=== PATIENT | male | born 1960 | race Caucasian/White ===

== ENCOUNTER 2023-04-12 09:07 | Emergency (ER) | payer MEDICAID ==
[~2023-04-12] VITALS: Ht 172.7 cm; Wt 77.3 kg
[2023-04-12] MEDS ORDERED: traMADol 50MG tablet PO ONE (09:40)
[2023-04-12 10:17] VITALS: BP 172/107
[2023-04-12] MEDS ORDERED: NAPR-56 PO (11:24)
[2023-04-12] MEDS ORDERED: TRAM50TA2 PO (11:24)
== END 2023-04-12 12:07 | disposition home or self-care (01) ==
LOC: ER 09:07
DX: M54.50 Low back pain, unspecified (principal); F17.200 Nicotine dependence, unspecified, uncomplicated; F12.90 Cannabis use, unspecified, uncomplicated; Z88.0 Allergy status to penicillin; V19.9XXA Pedal cyclist (driver) (passenger) injured in unspecified traffic accident, initial encounter; Y93.89 Activity, other specified; Y92.89 Other specified places as the place of occurrence of the external cause; Y99.8 Other external cause status
CPT/HCPCS: 72100; 73502; 99284